=== PATIENT | male | born 1990 | race Caucasian/White ===

== ENCOUNTER 2016-07-03 16:59 | Emergency (ER) | payer OTHER ==
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
--- NOTE | 2016-07-04 10:24 | ED MAR SUMMARY ---
..... Medication Administration Record [facility] [address] [place] [address] Patient: NEHAL HALL Visit ID: [id number] 26y, M Weight: 72.5 kg Height/Length: 69 in BMI: 23.6 ALLERGIES: No Known Drug Allergy Start 17:34 07/03/2016 Umesh Thomas RSanchoN., Stop 18:00 07/03/2016 Umesh Thomas RSanchoN. Medication Administered: IV NS (SALINE), Dose: IV Fluids over 60 minute(s), Rate: 1000 mL/hr, Dispensed: 1000 mL bag, Site: #1 right forearm. Medication Ordered: IV NS : initial bolus 1000 mL (1000 mL/hr), then 500 mL/hr for X2 (NOW).
--- NOTE | 2016-07-04 10:24 | ED MED RECONCILIATION SUMMARY ---
Patient: NEHAL HALL Medication Reconciliation Report [facility] VisitID: [id number] [address] [place] [address] 26y, M Registration Date/Time: 07/03/2016 Weight: 72.5 kg Height/Length: 69 in. BMI: 23.6 ALLERGIES: No Known Drug Allergy The patient's Home Medications are listed below: NONE. The source(s) of the original Home Medication information: patient The following Medications were given to the patient in the Emergency Department: IV NS IV Fluids bolus 0, then 1000 mL/hr, administered: 07/03/2016 5:34:00 PM The following Medications were prescribed to the patient: Acetaminophen (available over the counter): take according to label instructions. -- Amauri Abraham DO Motrin (available over the counter): take according to label instructions. -- Amauri Abraham DO Flexeril 10 mg: Take 1 orally every 8 hours as needed for muscle spasm. Dispense twenty (20). No refills. Substitution is permissible. -- Amauri Abraham DO
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
--- NOTE | 2016-07-04 10:24 | ED MED RECONCILIATION SUMMARY ---
Patient: NEHAL HALL Medication Reconciliation Report [facility] VisitID: [id number] [place] [address] 26y, M Registration Date/Time: 07/03/2016 Weight: 72.5 kg Height/Length: 69 in. BMI: 23.6 ALLERGIES: No Known Drug Allergy The patient's Home Medications are listed below: NONE. The source(s) of the original Home Medication information: patient The following Medications were given to the patient in the Emergency Department: IV NS IV Fluids bolus 0, then 1000 mL/hr, administered: 07/03/2016 5:34:00 PM The following Medications were prescribed to the patient: Acetaminophen (available over the counter): take according to label instructions. -- Amauri Abraham DO Motrin (available over the counter): take according to label instructions. -- Amauri Abraham DO Flexeril 10 mg: Take 1 orally every 8 hours as needed for muscle spasm. Dispense twenty (20). No refills. Substitution is permissible. -- Amauri Abraham DO
--- NOTE | 2016-07-04 10:24 | ED MAR SUMMARY ---
..... Medication Administration Record [facility] [address] [place] [address] Patient: NEHAL HALL Visit ID: [id number] 26y, M Weight: 72.5 kg Height/Length: 69 in BMI: 23.6 ALLERGIES: No Known Drug Allergy Start 17:34 07/03/2016 Umesh Thomas RSanchoN., Stop 18:00 07/03/2016 Umesh Thomas RSanchoN. Medication Administered: IV NS (SALINE), Dose: IV Fluids over 60 minute(s), Rate: 1000 mL/hr, Dispensed: 1000 mL bag, Site: #1 right forearm. Medication Ordered: IV NS : initial bolus 1000 mL (1000 mL/hr), then 500 mL/hr for X2 (NOW).
== END 2016-07-03 18:10 ==
LOC: ED SRH 16:59
DX: S06.0X1A Concussion with loss of consciousness of 30 minutes or less, initial encounter (principal); S16.1XXA Strain of muscle, fascia and tendon at neck level, initial encounter; S39.012A Strain of muscle, fascia and tendon of lower back, initial encounter; S20.219A Contusion of unspecified front wall of thorax, initial encounter; V49.50XA Passenger injured in collision with unspecified motor vehicles in traffic accident, initial encounter; Y93.I9 Activity, other involving external motion; Y92.410 Unspecified street and highway as the place of occurrence of the external cause; Y99.9 Unspecified external cause status; F10.120 Alcohol abuse with intoxication, uncomplicated; R10.84 Generalized abdominal pain
CPT/HCPCS: 90001; 90098; 90100; 90155; 90616; 91004; 91320; 91643; 92010; 92235; 92530; 92610; 92720; 94060; 95059

== ENCOUNTER 2016-07-27 13:10 | Emergency (ER) | payer OTHER ==
--- NOTE | 2016-07-27 14:20 | ED CLINICAL REPORT ---
Clinical Report - Physicians/Mid Levels [facility] [address] [place] [address] 07/27/2016 13:11 Patient: NEHAL HALL Time Seen: 13:33 Jul 27 2016. Arrived- By private vehicle. Historian- patient. HISTORY OF PRESENT ILLNESS Chief Complaint: SKIN RASH. 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 It has been located on the lips. (Over the last 5 days patient reports swelling to his lip, worsening significant lab over the last 2 days. Was seen in the urgent care yesterday, and started on antibiotic as well as Vicodin, waking up every hour due to pain. Possible black head in the area previously. Has not shaved in the area. Reports no diff swallowing. No dental pain. No h/o mrsa). REVIEW OF SYSTEMS No fever, sore throat, difficulty breathing, hoarseness or headache. No diarrhea. He has had chills. All systems otherwise negative, except as recorded above. SOCIAL HISTORY Smoker- current status unknown. History of drug use. Not an IV drug user. No alcohol use. ADDITIONAL NOTES The nursing notes have been reviewed. PHYSICAL EXAM Vital Signs: 07/27/2016 13:29 BP: 144/95. HR: 84. RR: 15. O2 saturation: 100%. Temp: 98.3 F. Pain level now: 6/10. Appearance: Alert. ENT: ( no dental erythema or gumline erythema.). CVS: Normal heart rate and rhythm. Heart sounds normal. Respiratory: No respiratory distress. Breath sounds normal. Chest nontender. Skin: Skin warm. Tender indurated area. Cellulitis. Rash present on the face (upper lip left with swelling/ induration, no palpable fluctulance or signs of drainage). There is warmth, induration and tenderness. No weeping. Neuro: Oriented X 3. LABS, X-RAYS, AND EKG Laboratory Tests: CBC w Diff: (MARCELLA: 07/27/2016 13:50) ( MsgRcvd 07/27/2016 13:58) Final results Test Result Flag Units (Reference) WHITE BLOOD COUNT 15.3 H K/uL (4.5-11.5) RED BLOOD COUNT 4.41 L M/uL (4.50-5.90) HEMOGLOBIN 13.9 gm/dL (13.5-17.5) HEMATOCRIT 40.6 L % (41.0-53.0) MEAN CELL VOLUME 92 fL (80-100) MEAN CORPUSCULAR HGB 31 pg (26-34) MEAN CORPUSCULAR HGB CONC 34 g/dL (31-37) RED CELL DISTRIBUTION WIDTH 12.8 % (11.6-14.8) PLATELET COUNT 304 K/uL (150-400) NEUTROPHIL % 81.8 H % (50-75) LYMPH % 8.8 L % (25-40) MONO % 7.2 % (3-14) EOSINOPHIL % 2.2 % (0-4) BASOPHIL % 0 % (0-2) . PROGRESS AND PROCEDURES Course of Care: pt given keflex previously. Patient is stable. No palpable abscess. Uvula midline. Localized swelling to the upper lip. With no signs of abscess. Patient given IV clindamycin. Leukocytosis noted as well. Patient to follow up with ENT or primary care provider over the next 2 days. Patient is stable. Patient/family counseled. Disposition: Discharged. CLINICAL IMPRESSION Single abscess to the face. INSTRUCTIONS (warm packs follow up with ENT). Prescription Medications: Clindamycin 300 mg: take 1 capsule orally every 8 hours for 10 days. No refill. Percocet 5 mg/325 mg: take 1 tablet orally every 6 hours as needed for pain. Dispense twelve (12). No refill. Substitution is permissible. Follow-up with: Jer Main MD, ENT, , [facility], [address] [place] [address], [phone] Follow up. Call for the next available appointment. (Electronically signed by Jessika Sauceda P.A.-C 07/27/2016 14:52)
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
--- NOTE | 2016-07-27 14:20 | ED ORDER SUMMARY ---
..... Patient: NEHAL HALL OrderSheet [facility] VisitID: [id number] [place] [address] 26y, M Registration Date/Time: 07/27/2016 ORDER SHEET Weight: 77.5 kg (stated) Allergies: No Known Drug Allergy GENERAL ORDERS: CBC w Diff Urgent (13:32 07/27/2016 EKorolecharu P.A.-C) (Ack 13:34 Noah) (13:42 EHassan R.N.) MEDICATION ORDERS: IV FLUIDS: Clindamycin IV 900 mg/50mL (NOW) (13:32 07/27/2016 EKerileva P.A.-C) (13:55 EHassan R.N.) Toradol IV 30 mg (NOW) (13:32 07/27/2016 EKoroleva P.A.-C) (13:55 EHassan R.N.) IV Saline Lock (13:32 07/27/2016 EKoroleva P.A.-C) (13:55 EHassan R.N.) ORDER SHEET NOTES: [Electronically signed by Ivy Sawyer R.N. (14:30 07/27/2016)] [Electronically signed by Jessika SaucedaASancho-Bessie (14:52 07/27/2016)] [Electronically locked/signed by Ivy Sawyer R.N. (14:30 07/27/2016)]
--- NOTE | 2016-07-27 14:20 | ED ORDER SUMMARY ---
..... Patient: NEHAL HALL OrderSheet [facility] VisitID: [id number] [place] [address] 26y, M Registration Date/Time: 07/27/2016 ORDER SHEET Weight: 77.5 kg (stated) Allergies: No Known Drug Allergy GENERAL ORDERS: CBC w Diff Urgent (13:32 07/27/2016 EKorolecharu P.A.-C) (Ack 13:34 Noah) (13:42 EHassan R.N.) MEDICATION ORDERS: IV FLUIDS: Clindamycin IV 900 mg/50mL (NOW) (13:32 07/27/2016 EKerileva P.A.-C) (13:55 EHassan R.N.) Toradol IV 30 mg (NOW) (13:32 07/27/2016 EKoroleva P.A.-C) (13:55 EHassan R.N.) IV Saline Lock (13:32 07/27/2016 EKoroleva P.A.-C) (13:55 EHassan R.N.) ORDER SHEET NOTES: [Electronically signed by Ivy Sawyer R.N. (14:30 07/27/2016)] [Electronically signed by Jessika SaucedaASancho-Bessie (14:52 07/27/2016)] [Electronically locked/signed by Ivy Sawyer R.N. (14:30 07/27/2016)]
--- NOTE | 2016-07-27 14:20 | ED CLINICAL REPORT ---
Clinical Report - Physicians/Mid Levels [facility] [address] [place] [address] 07/27/2016 13:11 Patient: NEHAL HALL Time Seen: 13:33 Jul 27 2016. Arrived- By private vehicle. Historian- patient. HISTORY OF PRESENT ILLNESS Chief Complaint: SKIN RASH. 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 It has been located on the lips. (Over the last 5 days patient reports swelling to his lip, worsening significant lab over the last 2 days. Was seen in the urgent care yesterday, and started on antibiotic as well as Vicodin, waking up every hour due to pain. Possible black head in the area previously. Has not shaved in the area. Reports no diff swallowing. No dental pain. No h/o mrsa). REVIEW OF SYSTEMS No fever, sore throat, difficulty breathing, hoarseness or headache. No diarrhea. He has had chills. All systems otherwise negative, except as recorded above. SOCIAL HISTORY Smoker- current status unknown. History of drug use. Not an IV drug user. No alcohol use. ADDITIONAL NOTES The nursing notes have been reviewed. PHYSICAL EXAM Vital Signs: 07/27/2016 13:29 BP: 144/95. HR: 84. RR: 15. O2 saturation: 100%. Temp: 98.3 F. Pain level now: 6/10. Appearance: Alert. ENT: ( no dental erythema or gumline erythema.). CVS: Normal heart rate and rhythm. Heart sounds normal. Respiratory: No respiratory distress. Breath sounds normal. Chest nontender. Skin: Skin warm. Tender indurated area. Cellulitis. Rash present on the face (upper lip left with swelling/ induration, no palpable fluctulance or signs of drainage). There is warmth, induration and tenderness. No weeping. Neuro: Oriented X 3. LABS, X-RAYS, AND EKG Laboratory Tests: CBC w Diff: (MARCELLA: 07/27/2016 13:50) ( MsgRcvd 07/27/2016 13:58) Final results Test Result Flag Units (Reference) WHITE BLOOD COUNT 15.3 H K/uL (4.5-11.5) RED BLOOD COUNT 4.41 L M/uL (4.50-5.90) HEMOGLOBIN 13.9 gm/dL (13.5-17.5) HEMATOCRIT 40.6 L % (41.0-53.0) MEAN CELL VOLUME 92 fL (80-100) MEAN CORPUSCULAR HGB 31 pg (26-34) MEAN CORPUSCULAR HGB CONC 34 g/dL (31-37) RED CELL DISTRIBUTION WIDTH 12.8 % (11.6-14.8) PLATELET COUNT 304 K/uL (150-400) NEUTROPHIL % 81.8 H % (50-75) LYMPH % 8.8 L % (25-40) MONO % 7.2 % (3-14) EOSINOPHIL % 2.2 % (0-4) BASOPHIL % 0 % (0-2) . PROGRESS AND PROCEDURES Course of Care: pt given keflex previously. Patient is stable. No palpable abscess. Uvula midline. Localized swelling to the upper lip. With no signs of abscess. Patient given IV clindamycin. Leukocytosis noted as well. Patient to follow up with ENT or primary care provider over the next 2 days. Patient is stable. Patient/family counseled. Disposition: Discharged. CLINICAL IMPRESSION Single abscess to the face. INSTRUCTIONS (warm packs follow up with ENT). Prescription Medications: Clindamycin 300 mg: take 1 capsule orally every 8 hours for 10 days. No refill. Percocet 5 mg/325 mg: take 1 tablet orally every 6 hours as needed for pain. Dispense twelve (12). No refill. Substitution is permissible. Follow-up with: Jer Main MD, ENT, , [facility], [address] [place] [address], [phone] Follow up. Call for the next available appointment. (Electronically signed by Jessika Sauceda P.A.-C 07/27/2016 14:52)
--- NOTE | 2016-07-27 14:52 | ED MED RECONCILIATION SUMMARY ---
Patient: NEHAL HALL Medication Reconciliation Report [facility] VisitID: [id number] [place] [address] 26y, M Registration Date/Time: 07/27/2016 Weight: 77.5 kg Height/Length: 69 in. BMI: 25.2 ALLERGIES: No Known Drug Allergy The patient's Home Medications are listed below: THE FOLLOWING MEDICATIONS NEED TO BE RECONCILED: Cephalexin Oral The source(s) of the original Home Medication information: patient The following Medications were given to the patient in the Emergency Department: Clindamycin [IVPB] IVPB bolus 0, then 900 mg 100 mL/hr, administered: 07/27/2016 1:55:00 PM Toradol [IVP] IVP 30 mg, administered: 07/27/2016 1:50:00 PM The following Medications were prescribed to the patient: Clindamycin 300 mg: take 1 capsule orally every 8 hours for 10 days. No refill. -- Jessika Sauceda P.ASajan Percocet 5 mg/325 mg: take 1 tablet orally every 6 hours as needed for pain. Dispense twelve (12). No refill. Substitution is permissible. -- Jessika Sauceda PSanchoASancho-Bessie
--- NOTE | 2016-07-27 14:52 | ED DISCHARGE INSTRUCTIONS ---
Patient: NEHAL HALL General Instructions [facility] VisitID: [id number] [address] [place] [address] 26y, M Registration Date/Time: 07/27/2016 Single abscess to the face. INSTRUCTIONS (warm packs follow up with ENT). Prescription Medications: Clindamycin 300 mg: take 1 capsule orally every 8 hours for 10 days. No refill. Percocet 5 mg/325 mg: take 1 tablet orally every 6 hours as needed for pain. Dispense twelve (12). No refill. Substitution is permissible. Follow-up with: Jer Main MD, ENT, , [facility], [address] [place] [address], [id number] Follow up. Call for the next available appointment. ADDITIONAL INFORMATION Abscess (Antibiotic Treatment Only) An abscess (sometimes called a boil) occurs when bacteria get trapped under the skin and begin to grow. Pus forms inside the abscess as the body responds to the bacteria. An abscess can occur with an insect bite, ingrown hair, blocked oil gland, pimple, cyst, or puncture wound. In the early stages, redness and tenderness are the only symptoms. Sometimes, this stage can be treated with antibiotics alone. If the abscess does not respond to antibiotic treatment, it will need to be drained with a small cut, under local anesthesia. Home care The following will help you care for your abscess at home: Soak the wound in hot water or apply hot packs (small towel soaked in hot water) to the area for 20 minutes at a time. Do this three to four times a day. Apply antibiotic cream or ointment onto the skin 3-4 times a day, unless something else was prescribed. Some ointments include an antibiotic plus a local pain reliever. If your doctor prescribed antibiotics, do not stop taking this medication until you have finished the prescribed course or the doctor tells you to stop. You may use an [id number] pain medication to control pain, unless another pain medicine was prescribed. If you have chronic liver or kidney disease or ever had a stomach ulcer or GI bleeding, talk with your doctor before using these any of these. Follow-up care Follow up with your health care provider as advised by our staff. Look at your wound each day for the signs of worsening infection listed below. When to seek medical care Get prompt medical attention if any of the following occur: An increase in redness or swelling Red streaks in the skin leading away from the abscess An increase in local pain or swelling Fever of 100.4F (38C) or higher, or as directed by your health care provider Pus or fluid coming from the abscess Cellulitis You have an infection of the skin known as cellulitis. This usually starts with a scrape, cut, insect bite, blister or other opening in the skin which becomes infected. This is a serious condition. It must be watched closely to be sure the infection is not spreading. With antibiotic treatment, the size of the red area will gradually shrink in size until the skin returns to normal. This will take 7-10 days. The red area should never increase in size once the antibiotic medicine has been started. Occasionally, an infection will be resistant to one antibiotic and another one will have to be used. Home Care: 1) Limit the use of the affected part, since excess movement can cause the infection to spread. 2) If the infection is on your leg, walk as little as possible during the first few days of the treatment. Keep your leg elevated while sitting. This will reduce swelling. 3) Take all of the antibiotic medicine exactly as directed until it is gone. Be careful not to miss any doses, especially during the first seven days. Follow Up with your doctor or this facility as directed. Check the infected area daily for the warning signs listed below. Get Prompt Medical Attention if any of the following occur: -- Spreading area of redness -- Increasing swelling or pain -- Appearance of pus or drainage -- Fever over 100.4 F (38.0 C) oral, or over 101.4 F (38.6 C) rectal, after two days on antibiotics Clindamycin Hydrochloride Oral capsule What is this medicine? CLINDAMYCIN (KLIN da MYE sin) is a lincosamide antibiotic. It is used to treat certain kinds of bacterial infections. It will not work for colds, flu, or other viral infections. How should I use this medicine? Take this medicine by mouth with a full glass of water. Follow the directions on the prescription label. You can take this medicine with food or on an empty stomach. If the medicine upsets your stomach, take it with food. Take your medicine at regular intervals. Do not take your medicine more often than directed. Take all of your medicine as directed even if you think your are better. Do not skip doses or stop your medicine early. Talk to your case making machine operator regarding the use of this medicine in children. Special care may be needed. What side effects may I notice from receiving this medicine? Side effects that you should report to your doctor or health healthcare social worker as soon as possible: allergic reactions like skin rash, itching or hives, swelling of the face, lips, or tongue dark urine pain on swallowing redness, blistering, peeling or loosening of the skin, including inside the mouth unusual bleeding or bruising unusually weak or tired yellowing of eyes or skin Side effects that usually do not require medical attention (report to your doctor or health healthcare social worker if they continue or are bothersome): diarrhea itching in the rectal or genital area joint pain nausea, vomiting stomach pain What may interact with this medicine? chloramphenicol erythromycin kaolin products What if I miss a dose? If you miss a dose, take it as soon as you can. If it is almost time for your next dose, take only that dose. Do not take double or extra doses. Where should I keep my medicine? Keep out of the reach of children. Store at room temperature between 20 and 25 degrees C (68 and 77 degrees F). Throw away any unused medicine after the expiration date. What should I tell my health care provider before I take this medicine? They need to know if you have any of these conditions: kidney disease liver disease stomach problems like colitis an unusual or allergic reaction to clindamycin, lincomycin, or other medicines, foods, dyes like tartrazine or preservatives or trying to get breast-feeding What should I watch for while using this medicine? Tell your doctor or healthcare professional if your symptoms do not start to get better or if they get worse. Do not treat diarrhea with over the counter products. Contact your doctor if you have diarrhea that lasts more than 2 days or if it is severe and watery. Oxycodone Hydrochloride, Acetaminophen Oral tablet What is this medicine? ACETAMINOPHEN; OXYCODONE (a set a MAK jose fen; ox i KOE done) is a pain reliever. It is used to treat mild to moderate pain. How should I use this medicine? Take this medicine by mouth with a full glass of water. Follow the directions on the prescription label. Take your medicine at regular intervals. Do not take your medicine more often than directed. Talk to your case making machine operator regarding the use of this medicine in children. Special care may be needed. Patients over 65 years old may have a stronger reaction and need a smaller dose. What side effects may I notice from receiving this medicine? Side effects that you should report to your doctor or health healthcare social worker as soon as possible: allergic reactions like skin rash, itching or hives, swelling of the face, lips, or tongue breathing difficulties, wheezing confusion light headedness or fainting spells severe stomach pain yellowing of the skin or the whites of the eyes Side effects that usually do not require medical attention (report to your doctor or health healthcare social worker if they continue or are bothersome): dizziness drowsiness nausea vomiting What may interact with this medicine? alcohol antihistamines barbiturates like amobarbital, butalbital, butabarbital, methohexital, pentobarbital, phenobarbital, thiopental, and secobarbital benztropine drugs for bladder problems like solifenacin, trospium, oxybutynin, tolterodine, hyoscyamine, and methscopolamine drugs for breathing problems like ipratropium and tiotropium drugs for certain stomach or intestine problems like propantheline, homatropine methylbromide, glycopyrrolate, atropine, belladonna, and dicyclomine general anesthetics like etomidate, ketamine, nitrous oxide, propofol, desflurane, enflurane, halothane, isoflurane, and sevoflurane medicines for depression, anxiety, or psychotic disturbances medicines for sleep muscle relaxants naltrexone narcotic medicines (opiates) for pain phenothiazines like perphenazine, thioridazine, chlorpromazine, mesoridazine, fluphenazine, prochlorperazine, promazine, and trifluoperazine scopolamine tramadol trihexyphenidyl What if I miss a dose? If you miss a dose, take it as soon as you can. If it is almost time for your next dose, take only that dose. Do not take double or extra doses. Where should I keep my medicine? Keep out of the reach of children. This medicine can be abused. Keep your medicine in a safe place to protect it from theft. Do not share this medicine with anyone. Selling or giving away this medicine is dangerous and against the law. Store at room temperature between 20 and 25 degrees C (68 and 77 degrees F). Keep container tightly closed. Protect from light. This medicine may cause accidental overdose and if it is taken by other adults, children, or pets. Flush any unused medicine down the toilet to reduce the chance of harm. Do not use the medicine after the expiration date. What should I tell my health care provider before I take this medicine? They need to know if you have any of these conditions: brain tumor Crohn's disease, inflammatory bowel disease, or ulcerative colitis drink more than 3 alcohol containing drinks per day drug abuse or addiction head injury heart or circulation problems kidney disease or problems going to the bathroom liver disease lung disease, asthma, or breathing problems an unusual or allergic reaction to acetaminophen, oxycodone, other opioid analgesics, other medicines, foods, dyes, or preservatives or trying to get breast-feeding What should I watch for while using this medicine? Tell your doctor or health healthcare social worker if your pain does not go away, if it gets worse, or if you have new or a different type of pain. You may develop tolerance to the medicine. Tolerance means that you will need a higher dose of the medication for pain relief. Tolerance is normal and is expected if you take this medicine for a long time. Do not suddenly stop taking your medicine because you may develop a severe reaction. Your body becomes used to the medicine. This does NOT mean you are addicted. Addiction is a behavior related to getting and using a drug for a non-medical reason. If you have pain, you have a medical reason to take pain medicine. Your doctor will tell you how much medicine to take. If your doctor wants you to stop the medicine, the dose will be slowly lowered over time to avoid any side effects. You may get drowsy or dizzy. Do not drive, use machinery, or do anything that needs mental alertness until you know how this medicine affects you. Do not stand or sit up quickly, especially if you are an older patient. This reduces the risk of dizzy or fainting spells. Alcohol may interfere with the effect of this medicine. Avoid alcoholic drinks. There are different types of narcotic medicines (opiates) for pain. If you take more than one type at the same time, you may have more side effects. Give your health care provider a list of all medicines you use. Your doctor will tell you how much medicine to take. Do not take more medicine than directed. Call emergency for help if you have problems breathing. The medicine will cause constipation. Try to have a bowel movement at least every 2 to 3 days. If you do not have a bowel movement for 3 days, call your doctor or health healthcare social worker. Do not take Tylenol (acetaminophen) or medicines that have acetaminophen with this medicine. Too much acetaminophen can be very dangerous. Many nonprescription medicines contain acetaminophen. Always read the labels carefully to avoid taking more acetaminophen. You have been given the following additional information: Abscess, Antiobiotic Treatment Only Cellulitis Clindamycin Hydrochloride Oral capsule Oxycodone Hydrochloride, Acetaminophen Oral tablet (Electronically signed by Jessika Sauceda P.A.-C 07/27/2016 14:52)
--- NOTE | 2016-07-27 14:52 | ED MAR SUMMARY ---
..... Medication Administration Record [facility] [address] [place] [address] Patient: NEHAL HALL Visit ID: [id number] 26y, M Weight: 77.5 kg Height/Length: 69 in BMI: 25.2 ALLERGIES: No Known Drug Allergy Given 13:50 07/27/2016 Ivy Sawyer R.N. Medication Administered: TORADOL [IVP], Dose: 30 mg IVP over 30 second(s), Site: #1 right AC. Medication Ordered: Toradol IV 30 mg (NOW). Start 13:55 07/27/2016 Ivy Sawyer RSanchoN., Stop 14:17 07/27/2016 Ivy Sawyer R.N. Medication Administered: CLINDAMYCIN [IVPB], Dose: 900 mg IVPB over 30 minute(s), Rate: 100 mL/hr, Site: #1 right AC. Medication Ordered: Clindamycin IV 900 mg/50mL (NOW).
--- NOTE | 2016-07-27 14:52 | ED DISCHARGE INSTRUCTIONS ---
Patient: NEHAL HALL General Instructions [facility] VisitID: [id number] [address] [place] [address] 26y, M Registration Date/Time: 07/27/2016 Single abscess to the face. INSTRUCTIONS (warm packs follow up with ENT). Prescription Medications: Clindamycin 300 mg: take 1 capsule orally every 8 hours for 10 days. No refill. Percocet 5 mg/325 mg: take 1 tablet orally every 6 hours as needed for pain. Dispense twelve (12). No refill. Substitution is permissible. Follow-up with: Jer Main MD, ENT, , [facility], [address] [place] [address], [id number] Follow up. Call for the next available appointment. ADDITIONAL INFORMATION Abscess (Antibiotic Treatment Only) An abscess (sometimes called a boil) occurs when bacteria get trapped under the skin and begin to grow. Pus forms inside the abscess as the body responds to the bacteria. An abscess can occur with an insect bite, ingrown hair, blocked oil gland, pimple, cyst, or puncture wound. In the early stages, redness and tenderness are the only symptoms. Sometimes, this stage can be treated with antibiotics alone. If the abscess does not respond to antibiotic treatment, it will need to be drained with a small cut, under local anesthesia. Home care The following will help you care for your abscess at home: Soak the wound in hot water or apply hot packs (small towel soaked in hot water) to the area for 20 minutes at a time. Do this three to four times a day. Apply antibiotic cream or ointment onto the skin 3-4 times a day, unless something else was prescribed. Some ointments include an antibiotic plus a local pain reliever. If your doctor prescribed antibiotics, do not stop taking this medication until you have finished the prescribed course or the doctor tells you to stop. You may use an [id number] pain medication to control pain, unless another pain medicine was prescribed. If you have chronic liver or kidney disease or ever had a stomach ulcer or GI bleeding, talk with your doctor before using these any of these. Follow-up care Follow up with your health care provider as advised by our staff. Look at your wound each day for the signs of worsening infection listed below. When to seek medical care Get prompt medical attention if any of the following occur: An increase in redness or swelling Red streaks in the skin leading away from the abscess An increase in local pain or swelling Fever of 100.4F (38C) or higher, or as directed by your health care provider Pus or fluid coming from the abscess Cellulitis You have an infection of the skin known as cellulitis. This usually starts with a scrape, cut, insect bite, blister or other opening in the skin which becomes infected. This is a serious condition. It must be watched closely to be sure the infection is not spreading. With antibiotic treatment, the size of the red area will gradually shrink in size until the skin returns to normal. This will take 7-10 days. The red area should never increase in size once the antibiotic medicine has been started. Occasionally, an infection will be resistant to one antibiotic and another one will have to be used. Home Care: 1) Limit the use of the affected part, since excess movement can cause the infection to spread. 2) If the infection is on your leg, walk as little as possible during the first few days of the treatment. Keep your leg elevated while sitting. This will reduce swelling. 3) Take all of the antibiotic medicine exactly as directed until it is gone. Be careful not to miss any doses, especially during the first seven days. Follow Up with your doctor or this facility as directed. Check the infected area daily for the warning signs listed below. Get Prompt Medical Attention if any of the following occur: -- Spreading area of redness -- Increasing swelling or pain -- Appearance of pus or drainage -- Fever over 100.4 F (38.0 C) oral, or over 101.4 F (38.6 C) rectal, after two days on antibiotics Clindamycin Hydrochloride Oral capsule What is this medicine? CLINDAMYCIN (KLIN da MYE sin) is a lincosamide antibiotic. It is used to treat certain kinds of bacterial infections. It will not work for colds, flu, or other viral infections. How should I use this medicine? Take this medicine by mouth with a full glass of water. Follow the directions on the prescription label. You can take this medicine with food or on an empty stomach. If the medicine upsets your stomach, take it with food. Take your medicine at regular intervals. Do not take your medicine more often than directed. Take all of your medicine as directed even if you think your are better. Do not skip doses or stop your medicine early. Talk to your cigar head puncher regarding the use of this medicine in children. Special care may be needed. What side effects may I notice from receiving this medicine? Side effects that you should report to your doctor or health youth care specialist as soon as possible: allergic reactions like skin rash, itching or hives, swelling of the face, lips, or tongue dark urine pain on swallowing redness, blistering, peeling or loosening of the skin, including inside the mouth unusual bleeding or bruising unusually weak or tired yellowing of eyes or skin Side effects that usually do not require medical attention (report to your doctor or health youth care specialist if they continue or are bothersome): diarrhea itching in the rectal or genital area joint pain nausea, vomiting stomach pain What may interact with this medicine? chloramphenicol erythromycin kaolin products What if I miss a dose? If you miss a dose, take it as soon as you can. If it is almost time for your next dose, take only that dose. Do not take double or extra doses. Where should I keep my medicine? Keep out of the reach of children. Store at room temperature between 20 and 25 degrees C (68 and 77 degrees F). Throw away any unused medicine after the expiration date. What should I tell my health care provider before I take this medicine? They need to know if you have any of these conditions: kidney disease liver disease stomach problems like colitis an unusual or allergic reaction to clindamycin, lincomycin, or other medicines, foods, dyes like tartrazine or preservatives or trying to get breast-feeding What should I watch for while using this medicine? Tell your doctor or healthcare professional if your symptoms do not start to get better or if they get worse. Do not treat diarrhea with over the counter products. Contact your doctor if you have diarrhea that lasts more than 2 days or if it is severe and watery. Oxycodone Hydrochloride, Acetaminophen Oral tablet What is this medicine? ACETAMINOPHEN; OXYCODONE (a set a MAK jose fen; ox i KOE done) is a pain reliever. It is used to treat mild to moderate pain. How should I use this medicine? Take this medicine by mouth with a full glass of water. Follow the directions on the prescription label. Take your medicine at regular intervals. Do not take your medicine more often than directed. Talk to your cigar head puncher regarding the use of this medicine in children. Special care may be needed. Patients over 65 years old may have a stronger reaction and need a smaller dose. What side effects may I notice from receiving this medicine? Side effects that you should report to your doctor or health youth care specialist as soon as possible: allergic reactions like skin rash, itching or hives, swelling of the face, lips, or tongue breathing difficulties, wheezing confusion light headedness or fainting spells severe stomach pain yellowing of the skin or the whites of the eyes Side effects that usually do not require medical attention (report to your doctor or health youth care specialist if they continue or are bothersome): dizziness drowsiness nausea vomiting What may interact with this medicine? alcohol antihistamines barbiturates like amobarbital, butalbital, butabarbital, methohexital, pentobarbital, phenobarbital, thiopental, and secobarbital benztropine drugs for bladder problems like solifenacin, trospium, oxybutynin, tolterodine, hyoscyamine, and methscopolamine drugs for breathing problems like ipratropium and tiotropium drugs for certain stomach or intestine problems like propantheline, homatropine methylbromide, glycopyrrolate, atropine, belladonna, and dicyclomine general anesthetics like etomidate, ketamine, nitrous oxide, propofol, desflurane, enflurane, halothane, isoflurane, and sevoflurane medicines for depression, anxiety, or psychotic disturbances medicines for sleep muscle relaxants naltrexone narcotic medicines (opiates) for pain phenothiazines like perphenazine, thioridazine, chlorpromazine, mesoridazine, fluphenazine, prochlorperazine, promazine, and trifluoperazine scopolamine tramadol trihexyphenidyl What if I miss a dose? If you miss a dose, take it as soon as you can. If it is almost time for your next dose, take only that dose. Do not take double or extra doses. Where should I keep my medicine? Keep out of the reach of children. This medicine can be abused. Keep your medicine in a safe place to protect it from theft. Do not share this medicine with anyone. Selling or giving away this medicine is dangerous and against the law. Store at room temperature between 20 and 25 degrees C (68 and 77 degrees F). Keep container tightly closed. Protect from light. This medicine may cause accidental overdose and if it is taken by other adults, children, or pets. Flush any unused medicine down the toilet to reduce the chance of harm. Do not use the medicine after the expiration date. What should I tell my health care provider before I take this medicine? They need to know if you have any of these conditions: brain tumor Crohn's disease, inflammatory bowel disease, or ulcerative colitis drink more than 3 alcohol containing drinks per day drug abuse or addiction head injury heart or circulation problems kidney disease or problems going to the bathroom liver disease lung disease, asthma, or breathing problems an unusual or allergic reaction to acetaminophen, oxycodone, other opioid analgesics, other medicines, foods, dyes, or preservatives or trying to get breast-feeding What should I watch for while using this medicine? Tell your doctor or health youth care specialist if your pain does not go away, if it gets worse, or if you have new or a different type of pain. You may develop tolerance to the medicine. Tolerance means that you will need a higher dose of the medication for pain relief. Tolerance is normal and is expected if you take this medicine for a long time. Do not suddenly stop taking your medicine because you may develop a severe reaction. Your body becomes used to the medicine. This does NOT mean you are addicted. Addiction is a behavior related to getting and using a drug for a non-medical reason. If you have pain, you have a medical reason to take pain medicine. Your doctor will tell you how much medicine to take. If your doctor wants you to stop the medicine, the dose will be slowly lowered over time to avoid any side effects. You may get drowsy or dizzy. Do not drive, use machinery, or do anything that needs mental alertness until you know how this medicine affects you. Do not stand or sit up quickly, especially if you are an older patient. This reduces the risk of dizzy or fainting spells. Alcohol may interfere with the effect of this medicine. Avoid alcoholic drinks. There are different types of narcotic medicines (opiates) for pain. If you take more than one type at the same time, you may have more side effects. Give your health care provider a list of all medicines you use. Your doctor will tell you how much medicine to take. Do not take more medicine than directed. Call emergency for help if you have problems breathing. The medicine will cause constipation. Try to have a bowel movement at least every 2 to 3 days. If you do not have a bowel movement for 3 days, call your doctor or health youth care specialist. Do not take Tylenol (acetaminophen) or medicines that have acetaminophen with this medicine. Too much acetaminophen can be very dangerous. Many nonprescription medicines contain acetaminophen. Always read the labels carefully to avoid taking more acetaminophen. You have been given the following additional information: Abscess, Antiobiotic Treatment Only Cellulitis Clindamycin Hydrochloride Oral capsule Oxycodone Hydrochloride, Acetaminophen Oral tablet (Electronically signed by Jessika Sauceda P.A.-C 07/27/2016 14:52)
--- NOTE | 2016-07-27 14:52 | ED MAR SUMMARY ---
..... Medication Administration Record [facility] [address] [place] [address] Patient: NEHAL HALL Visit ID: [id number] 26y, M Weight: 77.5 kg Height/Length: 69 in BMI: 25.2 ALLERGIES: No Known Drug Allergy Given 13:50 07/27/2016 Ivy Sawyer R.N. Medication Administered: TORADOL [IVP], Dose: 30 mg IVP over 30 second(s), Site: #1 right AC. Medication Ordered: Toradol IV 30 mg (NOW). Start 13:55 07/27/2016 Ivy Sawyer RSanchoN., Stop 14:17 07/27/2016 Ivy Sawyer R.N. Medication Administered: CLINDAMYCIN [IVPB], Dose: 900 mg IVPB over 30 minute(s), Rate: 100 mL/hr, Site: #1 right AC. Medication Ordered: Clindamycin IV 900 mg/50mL (NOW).
--- NOTE | 2016-07-27 14:52 | ED MED RECONCILIATION SUMMARY ---
Patient: NEHAL HALL Medication Reconciliation Report [facility] VisitID: [id number] [place] [address] 26y, M Registration Date/Time: 07/27/2016 Weight: 77.5 kg Height/Length: 69 in. BMI: 25.2 ALLERGIES: No Known Drug Allergy The patient's Home Medications are listed below: THE FOLLOWING MEDICATIONS NEED TO BE RECONCILED: Cephalexin Oral The source(s) of the original Home Medication information: patient The following Medications were given to the patient in the Emergency Department: Clindamycin [IVPB] IVPB bolus 0, then 900 mg 100 mL/hr, administered: 07/27/2016 1:55:00 PM Toradol [IVP] IVP 30 mg, administered: 07/27/2016 1:50:00 PM The following Medications were prescribed to the patient: Clindamycin 300 mg: take 1 capsule orally every 8 hours for 10 days. No refill. -- Jessika Sauceda P.ASajan Percocet 5 mg/325 mg: take 1 tablet orally every 6 hours as needed for pain. Dispense twelve (12). No refill. Substitution is permissible. -- Jessika Sauceda PSanchoASancho-Bessie
== END 2016-07-27 14:30 | disposition home or self-care (01) ==
LOC: ED SRH 13:10
DX: L02.01 Cutaneous abscess of face (principal)
CPT/HCPCS: 95059